=== PATIENT | female | born 1950 | race Two or more races ===

== ENCOUNTER 2020-10-02 08:25 | Outpatient (CLI) | payer OTHER | END 2020-10-02 08:30 | disposition home or self-care (01) | LOC: SONOGRAMA 08:25 | PROVIDERS: ATTEND Pathology Anatomic Pathology & Clinical Pathology | DX: E04.2 Nontoxic multinodular goiter (principal); D34 Benign neoplasm of thyroid gland; E07.89 Other specified disorders of thyroid ==